=== PATIENT | female | born 1970 | race Caucasian/White ===

== ENCOUNTER 2021-02-28 14:15 | Emergency (ER) | payer OTHER ==
[2021-02-28] MEDS ORDERED: MEDROL DOSEPAK 24 MG PO (17:02)
[2021-02-28] MEDS ORDERED: IBUPROFEN800 MG PO (17:05)
[2021-02-28] MEDS ORDERED: HYDROCODONE-AC1 EACH PO ×3 (17:25→17:45)
== END 2021-02-28 17:30 | disposition home or self-care (01) ==
LOC: ER1 14:15
DX: M54.12 Radiculopathy, cervical region (principal); I10 Essential (primary) hypertension; Z88.2 Allergy status to sulfonamides; Z79.899 Other long term (current) drug therapy
CPT/HCPCS: 96374; 96375; 99283; J1100; J1170; J1885